=== PATIENT | male | born 1985 | race Caucasian/White ===

== ENCOUNTER 2021-11-28 17:22 | Emergency (ER) | payer MEDICAID ==
[~2021-11-28] VITALS: Ht 172.7 cm; Wt 63.6 kg
[~2021-11-28 17:22] MED LIST: ACIDOPHILUS/PECTIN PO; ALAVERT1 TAB OR; BACTRIM DS1 TAB PO; BACTRIM1 TAB PO; CENTRU PO; CLARITIN10 M1 PO; CLINDAMYCIN300 M1 PO; CLONAZEP ODT1 MG OR; DEPAKOTE250 MG OR; DEPAKOTE500 MG PO; KLONOPIN WAF0.5 MG PO; KLONOPIN WAF1 MG PO; MULTI VIT PO; NEOSPORIN3.5 G1 OP; PROTONIX40 M2 PO; RISPERDAL1 MG OR; RISPERDAL2 MG PO; SEROPHENE50 MG PO; SEROQUEL100 MG PO; SEROQUEL50 MG PO; SILVADENE1 % TOP; ZITHROMAX250 MG OR; ZYPREXA ZYDI15 MG PO
[2021-11-28 18:49] VITALS: BP 162/94
== END 2021-11-28 18:49 | disposition home or self-care (01) ==
LOC: ED 17:22
DX: S01.01XA Laceration without foreign body of scalp, initial encounter (principal); F79 Unspecified intellectual disabilities; W07.XXXA Fall from chair, initial encounter; Y92.099 Unspecified place in other non-institutional residence as the place of occurrence of the external cause

== ENCOUNTER 2022-10-21 13:11 | Emergency (ER) | payer MEDICARE, MEDICAID ==
[~2022-10-21] VITALS: Ht 172.7 cm; Wt 63.6 kg
[2022-10-21 13:22] VITALS: BP 131/88
[2022-10-21 13:30] VITALS: BP 124/85
[2022-10-21 14:05] VITALS: BP 124/85
== END 2022-10-21 14:05 | disposition home or self-care (01) ==
LOC: ED 13:11
PROC: 0HQ1XZZ Repair Face Skin, External Approach (ICD-10-PCS; principal; 2022-10-21)
DX: S01.112A Laceration without foreign body of left eyelid and periocular area, initial encounter (principal); R62.50 Unspecified lack of expected normal physiological development in childhood; X83.8XXA Intentional self-harm by other specified means, initial encounter; Y92.099 Unspecified place in other non-institutional residence as the place of occurrence of the external cause

== ENCOUNTER 2025-01-14 17:17 | Emergency (ER) | payer MEDICARE | END 2025-01-14 17:30 | disposition E | LOC: ED 17:17 | PROC: 5A12012 Performance of Cardiac Output, Single, Manual (ICD-10-PCS; principal; 2025-01-14) | DX: T17.520A Food in bronchus causing asphyxiation, initial encounter (principal); I46.8 Cardiac arrest due to other underlying condition; F84.0 Autistic disorder; W44.F3XA Food entering into or through a natural orifice, initial encounter; Y92.10 Unspecified residential institution as the place of occurrence of the external cause ==